=== PATIENT | female | born 1965 | race Caucasian/White ===

== ENCOUNTER 2019-01-23 08:51 | Day surgery (SDC) | payer BC, MEDICAID ==
[2019-01-19 17:40] VITALS: BMI 25.5
[~2019-01-23] VITALS: Ht 154.9 cm; Wt 63.6 kg
[2019-01-23] VITALS (9 sets, daily range): BP systolic 100–115; BP diastolic 62–80; PULSE 67–82; RESP 14–17; Ht 154.9 cm; Wt 63.6 kg
[~2019-01-23 08:51] MED LIST: SEVOFLURANE 15 MIN ONE
--- NOTE | 2019-01-23 10:41 | PREAC ---
Date/Time of Note Date/Time of Note DATE: 01/23/19 TIME: 10:40 Anesthesia Eval and Record Evaluation Time Pre-Procedure Interview DATE: 01/23/19 TIME: 10:40 Age 53 Sex female NPO: 8 hrs Preoperative diagnosis Abnormal bleeding Planned procedure D & C Past Medical History Past Medical History: Includes (H/O prediabetes) Surgery & Anesthesia Issues No known issue Meds Anticoagulation: No Beta Dimple within 24 hr: No Reason Beta Dimple not given: Pt. not on B-Dimple No Active Prescriptions or Reported Meds Meds reviewed: Yes Allergies Coded Allergies: No Known Drug Allergies (Verified Allergy, Unknown, 01/23/19) Allergies Reviewed: Yes Labs/Studies Labs Reviewed: Reviewed by anesthesiologist test: Negative Pre-procedure Exam Last vitals Vital Signs Date Temp Pulse Resp B/P (MAP) Pulse Ox O2 O2 Flow FiO2 Time Delivery Rate 01/23/19 97.3 67 16 115/80 98 Room Air 10:21 (92) Airway: Adequate mouth opening Mallampati: Mallampati I Teeth: Abnormal (Partial denture removed) Lung: Normal Heart: Normal ASA Physical Status ASA physical status: 2 Emergency: None Planned Anesthetic General/MAC: LMA Planned Pain Management Parenteral pain med Pre-operative Attestations Prior to commencing anesthesia and surgery, the patient was re-evaluated, there was verification of: *The patient's identity *The results of appropriate recent lab work and preoperative vital signs *The above evaluation not changing prior to induction *Anesthetic plan, risk benefits, alternative and complications discussed with patient/family; questions answered; patient/family understands, accepts and wishes to proceed. SHERLY AMADOR MD Jan 23, 2019 10:41
[2019-01-23] MEDS ORDERED: METOCLOPRAMIDE 10 MG INJ ONE (11:15)
[2019-01-23] MEDS ORDERED: ONDANSETRON 4 MG INJ ONE (11:15)
[2019-01-23] MEDS ORDERED: CEFAZOLIN 1 GM INJ ONE (11:15)
[2019-01-23] MEDS ORDERED: LIDOCAINE 2% (SDV) 5 ML INJ ONE (11:15)
[2019-01-23] MEDS ORDERED: PROPOFOL 20 ML ONE (11:15)
[2019-01-23] MEDS ORDERED: ONDANSETRON 4 MG INJ IV PRN (12:00)
[2019-01-23] MEDS ORDERED: DIPHENHYDRAMINE 50 MG INJ IV PRN (12:00)
[2019-01-23] MEDS ORDERED: OXYCODONE/ACETAMINOPHEN (5/325) TAB PO PRN ×2 (12:00)
[2019-01-23] MEDS ORDERED: MIDAZOLAM 1 MG/ML 2 ML INJ IV PRN (12:00)
[2019-01-23] MEDS ORDERED: LABETALOL HCL 20MG INJ IV PRN (12:00)
[2019-01-23] MEDS ORDERED: MEPERIDINE 25 MG INJ IV PRN (12:00)
[2019-01-23] MEDS ORDERED: EPHEDrine SULFATE 50 MG/5 ML SYG IV PRN (12:00)
[2019-01-23] MEDS ORDERED: METOCLOPRAMIDE 10 MG INJ IV PRN (12:00)
[2019-01-23] MEDS ORDERED: hydrALAzine 20 MG INJ IV PRN (12:00)
[2019-01-23] MEDS ORDERED: FENTAnyl 50 MCG/ML VIAL IV PRN ×3 (12:00)
--- NOTE | 2019-01-23 12:05 | SIPON ---
Date/Time of Note Date/Time of Note DATE: 01/23/19 TIME: 12:03 Operative Report Preoperative Diagnosis Abnormal uterine bleeding Postoperative Diagnosis Same Operation/Procedure Performed D&C Surgeon Mariia Bey MD property assistant None Anesthesia: general Estimated blood loss: minimal Transfusion Required none Specimen ECC and EMC Grafts/Implants none Complications none MARIIA BEY MD Jan 23, 2019 12:05
--- NOTE | 2019-01-23 12:07 | PREOPHP ---
DATE OF ADMISSION: 01/23/2019 HISTORY OF PRESENT ILLNESS: A 53-year-old female 2, para 2, last menstrual period , admitted with history of abnormal uterine bleeding. PAST MEDICAL HISTORY: Unremarkable. PAST SURGICAL HISTORY: section x2, umbilical hernia repair and nose surgery and ear surgery . ALLERGIES: No known allergies. FAMILY HISTORY: Hypertension, diabetes. PHYSICAL EXAMINATION: VITAL SIGNS: Patient is afebrile. Vital signs stable. HEAD, NECK AND CHEST: Within normal limits. ABDOMEN: Soft, nontender, nondistended. PELVIC: Normal. EXTREMITIES: Within normal limits. NEUROLOGIC: Within normal limits. IMPRESSION: Abnormal uterine bleeding. PLAN: Dilation and curettage. Risks, benefits and alternatives of procedure explained to the patien t. The patient said she understood and gave informed consent for the procedure. Dictated By: MARIIA RUIZ/EUSEBIO Conf#: [id number] DID#: [id number]
--- NOTE | 2019-01-23 12:55 | PAC ---
Date/Time of Note Date/Time of Note DATE: 01/23/19 TIME: 12:54 Post-Anesthesia Notes Post-Anesthesia Note Last documented vital signs Vital Signs Date Temp Pulse Resp B/P (MAP) Pulse Ox O2 O2 Flow FiO2 Time Delivery Rate 01/23/19 78 16 108/70 98 Room Air 12:30 (83) 01/23/19 98.1 11:55 Activity: WNL Respiratory function: WNL Cardiovascular function: WNL Mental status: Baseline Pain reasonably controlled: Yes Hydration appropriate: Yes Nausea/Vomiting absent: Yes Comments BT: 98.6 SHERLY AMADOR MD Jan 23, 2019 12:54
--- NOTE | 2019-01-25 19:33 | OPR ---
DATE OF OPERATION: 01/23/2019 PREOPERATIVE DIAGNOSIS: Abnormal uterine bleeding. POSTOPERATIVE DIAGNOSIS: Abnormal uterine bleeding. OPERATION PERFORMED: Dilation and curettage. SURGEON: Mariia Lee MD ANESTHESIA: General. ANESTHESIOLOGIST: Gary Reis MD DESCRIPTION OF PROCEDURE: The patient was taken to operating room, placed on the operating table in supine position. After adequate general anesthesia was given, the area was prepared and draped in th e usual sterile fashion. The area was prepared and draped in the usual sterile fashion. A speculum was placed inside the vagina and tenaculum was used to grasp the anterior lip of the cervix. Using K evorkian curet, endocervical curettage was performed and specimen obtained was sent to pathology. Ne xt using cervical dilators, the cervical os was dilated. Using sharp curet, endometrial curettage wa s performed and this sent to pathology. All instruments were removed. Adequate hemostasis was assur ed. The patient tolerated the procedure well. The patient was awakened from anesthesia and transfer red to recovery room in stable condition. ESTIMATED BLOOD LOSS: Minimal. COUNTS: All counts were correct. Dictated By: MARIIA RUIZ/NTS Conf#: [id number] DID#: [id number]
== END 2019-01-23 14:10 | disposition home or self-care (01) ==
LOC: SDS 08:51
PROVIDERS: ATTEND Obstetrics & Gynecology
DX: N93.9 Abnormal uterine and vaginal bleeding, unspecified (principal)
CPT/HCPCS: 58120; 84703; 86850; 86900; 86901; 88305; J0690; J2405; J2765; Z7512; Z7610